=== PATIENT | female | born 1965 | race Caucasian/White ===

== ENCOUNTER 2018-07-18 08:38 | Day surgery (SDC) | payer BC, SELFPAY ==
[2018-07-18 08:59] VITALS: BP 140/85; PULSE 56; RESP 16; TEMP 36; O2SAT 97
[2018-07-18] MEDS: Lactated Ringers 1,000 ML 30 ML IV (09:31)
--- NOTE | 2018-07-18 10:22 | W.PM.DSUDISC ---
Discharge Plan Disposition Patient Disposition: HOME Condition: Good Discharge Details Reason For Visit: Colorectal Cancer screen Attending Provider: Harmeet Monique Primary Care Provider: Royce Farris Home Meds and New Rx's Prescriptions: Continue rizatriptan 10 mg tablet 10 mg PO PRN PRNRF: 0 venlafaxine 150 mg capsule,extended release 24hr 300 mg PO DAILY RF: 0 trazodone 150 mg tablet 150 mg PO HS RF: 0 promethazine 25 mg suppository 25 mg [place] Q6H PRNRF: 0 ondansetron HCl 4 mg tablet 4 mg PO QID PRNRF: 0 diclofenac sodium 75 mg tablet,delayed release (DR/EC) 75 mg PO BID RF: 0 candesartan 32 mg tablet 32 mg PO DAILY RF: 0 erenumab-aooe [Aimovig Autoinjector (2 Pack)] 70 mg/mL auto-injector 140 mg SC QMONTH RF: 0 multivitamin,et-zftl-tyntmbfr [Complete Multivitamin] tablet 1 tab PO DAILY RF: 0 gabapentin 600 mg tablet 1,200 mg PO BID RF: 0 atorvastatin 20 MG tablet 20 mg PO DAILY RF: 0 atenolol 50 MG tablet 75 mg PO DAILY RF: 0 vitamin B complex 1 EACH tablet 1 ea PO DAILY RF: 0 cholecalciferol (vitamin D3) [Vitamin D3] 400 UNIT tablet 400 unit PO DAILY RF: 0 hydroxychloroquine 200 MG tablet 200 mg PO BID RF: 0 levothyroxine 75 MCG tablet 75 mcg PO DAILY RF: 0 omeprazole 20 mg Tablet,Delayed Release (Dr/Ec) 20 mg PO DAILY RF: 0 coQ10 (ubiquinol) 100 mg Capsule 300 mg PO DAILY RF: 0 Estravel 1 tab PO BID RF: 0 Medical Marijuana DAILY RF: 0 Discharge Instructions Instructions: Colonoscopy (DC) Activity:: Activity as Tolerated Diet:: As Tolerated Discharge Orders Discharge Orders: Discharge Order (Routine); Ordered 07/18/18 Ordered By: Harmeet Monique DS: Diagnosis Discharge Diagnosis (1) Encounter for screening colonoscopy: Status: Acute
--- NOTE | 2018-07-18 10:30 | W.COLOREPORT ---
Date of service: 07/18/18 Time of Service: 10:30 Colonoscopy Report Date of procedure: 07/18/18 Pre-op diagnosis general: Colorectal cancer screening Post-op diagnosis procedure note: other (Normal colon to the cecum) Procedure: Colonoscopy to the cecum Surgeon: Harmeet Monique Anesthesia proc note operative: MAC (Wily Martinez, NORBERTO ASA 2, Mallampati II) Estimated blood loss (mL): 0 Pathology: none sent Complications: None Disposition: same day Indications: 52 y/o female with history presents for her first colonoscopy screening pre-op. She denies a family history of colon cancer. She denies any changes in bowel habits, however states that she has always had issues with diarrhea which she treats with immodium and constipation. Denies bloody or black tarry stools or abdominal pain. She denies constitutional symptoms. Prep: Miralax/Dulcolax (Prep quality good) Findings: In examining the colon from cecum to rectum, no abnormalities were found. Procedure Description: The patient was seen in the day surgery waiting area. Her identification was confirmed, and procedure check. She was then brought to the procedure room. Monitoring for telemetry, blood pressure, oxygen saturation, and end tidal CO2 monitoring were applied. An appropriate time out was performed to confirm, identification, allergies, medication, procedure, was performed. Sedation was titrated for affect by the SOCIOLOGY INSTRUCTOR; Once adequate sedation was achieved, I performed a inspection of the external perineum, and a digitial rectal examination. No significant external abnormalities were noted. On digital rectal examination, there was no blood, no masses, good rectal tone. I advanced the colonoscope from the anus to the cecum under direct visualization. The cecum was identified by the ileal-cecal valve, and the appendiceal orifice. The scope was then withdrawn in circumferential manner from the cecum to the rectum. No abnormalites were noted in the colon. The scope was then withdrawn into the rectum, and retroflexed. No abnormalities were noted of the rectum or anorectal junction. The scope was then withdrawn, terminating the procedure. There were no complications during the procedure, and the patient tolerated the procedure well. She was returned to the day surgery recovery area in good condition. Plan: Will continue with routine screening for colorectal cancer according to current consensus guidelines, which is currently 10 years.
[2018-07-18 12:07] VITALS: BP 106/56; PULSE 52; RESP 18; TEMP 36.7; O2SAT 96
== END 2018-07-18 12:55 | disposition home or self-care (01) ==
PROVIDERS: PCP Internal Medicine; Visit Provider Surgery
PROC: 0DJD8ZZ Inspection of Lower Intestinal Tract, Via Natural or Artificial Opening Endoscopic (ICD-10-PCS; CPT 45378; principal; 2018-07-18 10:30)
DX: Z12.11 Encounter for screening for malignant neoplasm of colon (principal); I10 Essential (primary) hypertension; G47.33 Obstructive sleep apnea (adult) (pediatric)
CPT/HCPCS: 45378; J2250; J3010

== ENCOUNTER 2019-03-24 11:46 | Outpatient (CLI) | payer BC, SELFPAY ==
[2019-03-24 13:26] LABS: Anion Gap 6.8 mmol/L (3-11); BUN 20 mg/dL (7-18); CO2 28.2 mmol/L (21.0-32.0); CREATININE 0.82 mg/dL (0.55-1.02); Calcium 9.1 mg/dL (8.5-10.1); Chloride 99 mmol/L (98-107); Glucose 77 mg/dL (70-100); Potassium 5.2 mmol/L (3.5-5.1); Sodium 134 mmol/L (136-145); TSH 1.28 uIU/mL (0.358-3.74)
== END 2019-03-24 12:06 ==
PROVIDERS: PCP Internal Medicine; Visit Provider Internal Medicine
DX: I10 Essential (primary) hypertension (principal); E03.9 Hypothyroidism, unspecified
CPT/HCPCS: 36415; 80048; 84443

== ENCOUNTER 2019-04-27 08:10 | Outpatient (CLI) | payer BC, SELFPAY ==
[2019-04-27 09:57] LABS: Anion Gap 9.1 mmol/L (3-11); BUN 17 mg/dL (7-18); CO2 27.9 mmol/L (21.0-32.0); CREATININE 0.83 mg/dL (0.55-1.02); Calcium 9.5 mg/dL (8.5-10.1); Chloride 100 mmol/L (98-107); Glucose 92 mg/dL (70-100); Potassium 5.2 mmol/L (3.5-5.1); Sodium 137 mmol/L (136-145); TSH 3.95 uIU/mL (0.358-3.74)
== END 2019-04-27 08:30 ==
PROVIDERS: PCP Internal Medicine; Visit Provider Internal Medicine
DX: I10 Essential (primary) hypertension (principal); E03.9 Hypothyroidism, unspecified
CPT/HCPCS: 36415; 80048; 84443

== ENCOUNTER 2019-05-26 07:29 | Emergency (ER) | payer BC, SELFPAY ==
[2019-05-26 07:33] VITALS: BP 101/37; PULSE 59; RESP 12; TEMP 36.5; O2SAT 100
[2019-05-26] MEDS: Amoxicillin 875/Clav. 125 TAB PO (08:02)
--- NOTE | 2019-05-26 08:02 | ED.GENADUL_ITS ---
Discharge Plan Disposition Patient Disposition: HOME Condition: Stable Discharge Details Chief Complaint: AnimalBite Clinical Impression: Dog bite of right arm Primary Care Provider: Pastora Kaur ED Provider: Yakov Gudino Philip Meds and New Rx's Prescriptions: New amoxicillin-pot clavulanate [Augmentin] 875-125 mg tablet 1 tab PO Q12H Qty: 14 RF: 0 No Action rizatriptan 10 mg tablet 10 mg PO PRN PRNRF: 0 venlafaxine 150 mg capsule,extended release 24hr 300 mg PO DAILY RF: 0 trazodone 150 mg tablet 150 mg PO HS RF: 0 promethazine 25 mg suppository 25 mg [place] Q6H PRNRF: 0 ondansetron HCl 4 mg tablet 4 mg PO QID PRNRF: 0 diclofenac sodium 75 mg tablet,delayed release (DR/EC) 75 mg PO BID RF: 0 candesartan 32 mg tablet 32 mg PO DAILY RF: 0 erenumab-aooe [Aimovig Autoinjector (2 Pack)] 70 mg/mL auto-injector 140 mg SC QMONTH RF: 0 multivitamin,km-mygq-booqntwa [Complete Multivitamin] tablet 1 tab PO DAILY RF: 0 gabapentin 600 mg tablet 1,200 mg PO BID RF: 0 atorvastatin 20 MG tablet 20 mg PO DAILY RF: 0 atenolol 50 MG tablet 75 mg PO DAILY RF: 0 vitamin B complex 1 EACH tablet 1 ea PO DAILY RF: 0 cholecalciferol (vitamin D3) [Vitamin D3] 400 UNIT tablet 400 unit PO DAILY RF: 0 hydroxychloroquine 200 MG tablet 200 mg PO BID RF: 0 levothyroxine 75 MCG tablet 75 mcg PO DAILY RF: 0 omeprazole 20 mg Tablet,Delayed Release (Dr/Ec) 20 mg PO DAILY RF: 0 coQ10 (ubiquinol) 100 mg Capsule 300 mg PO DAILY RF: 0 Estravel 1 tab PO BID RF: 0 Medical Marijuana DAILY RF: 0 Discharge Instructions Instructions: Animal Bite (ED) Additional Instructions: return in 7-10 days to have the woud evaluate for suture removal. If redness spreads away from the wound or you have yellow/white discharge return to the [facility] department Medical Decision Making 53 yo female states she was breaking up a dispute between her dogs this morning and her gonsalez retriever that is utd on vaccines per pt bit her right arm. She has 3 puncture wounds to the forearm that are less than 3mm in diameter. Has no severe pain in the forearm, full rom of the wrist and hand with intact sensation so doubt tendon or nerve or artery injury (2+ radial and ulnar pulses). She has a 1cm laceration of the anterior elbow in ac fossa that will require sutures to loosely close, she has full rom of the elbow but is having some lateral pain so will xray to eval for possible fx. She states she had tetanus vaccine a few weeks ago xray negative, closed the wound with 5 sutures, advised return in 7-10 days for suture removal and sooner if signs of infection develop Differential Diagnosis dog bite, fx Imaging Data Radiologic Study: Attestation: I personally reviewed and interpreted this imaging study as follows: Imaging: X-Ray Radiologist's impression: no acute findings HPI General Mode of arrival: ambulatory . Date/Time Provider Initiated Documentation: 05/26/19 07:49 . Limitations to Documentation: no limitations . Information obtained by: patient . History of Present Illness 53 year old F presents to the emergency department with the chief complaint of right arm dog bite, described as moderate, Quality is described as aching, and is localized to the right and upper extremity. Patient reports no radiation. Patient started experiencing this hour(s) (1) and it has been constant. No relieving factors improve symptom(s), No exacerbating factors reported . Patient did receive the following treatments prior to arrival, none Related Data Home Medications Medication Instructions Recorded Confirmed atenolol 75 mg PO DAILY tab-cap 03/08/15 07/16/18 atorvastatin 20 mg PO DAILY tab-cap 03/08/15 07/18/18 vitamin B complex 1 ea PO DAILY 03/08/15 07/18/18 cholecalciferol (vitamin D3) 400 unit PO DAILY 06/09/15 07/18/18 [Vitamin D3] levothyroxine 75 mcg PO DAILY 09/01/15 07/16/18 hydroxychloroquine 200 mg PO BID tab-cap NS 02/13/18 07/16/18 candesartan 32 mg tablet 32 mg PO DAILY 07/07/18 07/16/18 diclofenac sodium 75 mg 75 mg PO BID tab 07/07/18 07/18/18 tablet,delayed release erenumab-aooe 70 mg/mL 140 mg SC QMONTH 07/07/18 07/18/18 subcutaneous auto-injector gabapentin 600 mg tablet 1,200 mg PO BID tab 07/07/18 07/16/18 multivitamin,cr-yybb-nawdmzez 1 tab PO DAILY 07/07/18 07/18/18 ondansetron HCl 4 mg tablet 4 mg PO QID PRN 07/07/18 07/18/18 promethazine 25 mg rectal 25 mg MN Q6H PRN 07/07/18 07/18/18 suppository rizatriptan 10 mg tablet 10 mg PO PRN PRN 07/07/18 07/18/18 trazodone 150 mg tablet 150 mg PO HS 07/07/18 07/18/18 venlafaxine 150 mg 300 mg PO DAILY cap 07/07/18 07/16/18 capsule,extended release 24 hr Estravel 1 tab PO BID 07/16/18 Medical Marijuana DAILY 07/16/18 coQ10 (ubiquinol) 300 mg PO DAILY 07/16/18 07/18/18 omeprazole 20 mg PO DAILY 07/16/18 07/16/18 amoxicillin-pot clavulanate 1 tab PO Q12H #14 tab 05/26/19 [Augmentin] Previous Rx's Medication Instructions Recorded amoxicillin-pot clavulanate 1 tab PO Q12H #14 tab 05/26/19 [Augmentin] Allergies Allergy/AdvReac Type Severity Reaction Status Date / Time No Known Allergies Allergy Verified 05/26/19 07:37 General Stated Complaint: AnimalBite ALTHEA: 3 Review of Systems Review of Systems All systems reviewed & are unremarkable except as noted in HPI and below Constitutional Denies chills and Denies fever(s) Cardiovascular Denies chest pain and Denies dyspnea Respiratory Denies cough and Denies dyspnea Gastrointestinal Denies abdominal pain, Denies nausea and Denies vomiting Musculoskeletal Denies joint swelling [facility] Medical History (Updated 07/17/18 @ 09:56 by Wale Rivera) Depression Fibromyalgia GERD (gastroesophageal reflux disease) Hyperlipidemia Hypertension Hypothyroidism Insomnia Migraine OSCAR (obstructive sleep apnea) Surgical History (Updated 07/30/18 @ 14:33 by [facility] OR) Cholecystectomy Excision, Skin Mass H/O colonoscopy (Chronic 07/18/18) Laparoscopic, Ovarian Cystectomy Social History Smoking/Tobacco Use Status: Current every day Tobacco Type: cigarettes Alcohol Intake: current Alcohol Intake frequency: 0-2 drinks per day Alcohol type: wine Drug use: Daily Substance use type: marijuana Do you feel safe at home: Yes Do you feel safe in your relationship?: Yes Exam Const General: no acute distress Orientation: alert HENMT Head: normal to inspection Ears: external ears normal General nose exam: external nose normal Mouth: moist mucous membranes Eyes General: appearance normal, both eyes and all related structures Neck Neck: normal visual inspection Resp Effort & Inspection: normal respiratory effort and able to speak in complete sentences Cardio Rate: regular rate Skin General skin exam: no rashes or lesions noted Neuro General: alert and oriented x3 Extrem General: full ROM Psych Mental Status: mental status grossly normal Course Vital Signs Temperature 36.5 C 05/26/19 07:33 Pulse 59 L 05/26/19 07:33 Respiratory Rate 12 05/26/19 07:33 Blood Pressure 101/37 L 05/26/19 07:33 Pulse Oximetry 100 05/26/19 07:33 Temperature 36.5 C 05/26/19 07:33 Temperature Source Temporal Artery Scan 05/26/19 07:33 Pulse 59 L 05/26/19 07:33 Respiratory Rate 12 05/26/19 07:33 Respiratory Effort Non-Labored 05/26/19 07:35 Blood Pressure 101/37 L 05/26/19 07:33 Blood Pressure Position Sitting 05/26/19 07:33 Pulse Oximetry 100 05/26/19 07:33 Oxygen Delivery Method Room Air 05/26/19 07:33 Oxygen Flow Rate 0 05/26/19 07:33 Pain Level 7 05/26/19 07:33 Procedures Laceration Laceration 1: Site: upper extremity Side (If applicable): right Size (cm): 2 Description: linear Depth: simple, single layer Local Anesthetic: Lidocaine 1% Amount of anesthesia used (mL): 10 Pre-repair: wound explored Skin layer closed with: nylon Size (cm): 5-0 Number of sutures: 5 Technique: simple, interrupted
--- NOTE | 2019-05-26 08:08 | DI.RAD_ITS ---
SYMPTOM/DIAGNOSIS: PAIN, S/P DOG BITE, ? FRACTURE RIGHT ELBOW: 05/26 Three views were obtained. There is no evidence of an elbow joint effusion or hemarthrosis. No fracture is seen.
[2019-05-26 09:09] VITALS: BP 101/37; PULSE 59; RESP 12; TEMP 36.5; O2SAT 100
== END 2019-05-26 09:07 | disposition home or self-care (01) ==
PROVIDERS: Emergency Provider Emergency Medicine; PCP Internal Medicine
DX: S51.851A Open bite of right forearm, initial encounter (principal); S51.051A Open bite, right elbow, initial encounter; W54.0XXA Bitten by dog, initial encounter; I10 Essential (primary) hypertension
CPT/HCPCS: 12001; 99283; 73080; 99281

== ENCOUNTER 2019-06-01 11:08 | Outpatient (CLI) | payer BC, SELFPAY ==
[2019-06-01 12:07] LABS: Anion Gap 9.5 mmol/L (3-11); BUN 14 mg/dL (7-18); CO2 28.5 mmol/L (21.0-32.0); CREATININE 0.88 mg/dL (0.55-1.02); Calcium 9.3 mg/dL (8.5-10.1); Chloride 100 mmol/L (98-107); Glucose 94 mg/dL (70-100); Potassium 4.1 mmol/L (3.5-5.1); Sodium 138 mmol/L (136-145)
== END 2019-06-01 11:28 ==
PROVIDERS: PCP Internal Medicine; Visit Provider Internal Medicine
DX: I10 Essential (primary) hypertension (principal)
CPT/HCPCS: 36415; 80048

== ENCOUNTER 2019-07-29 12:18 | Outpatient (CLI) | payer BC, SELFPAY | END 2019-07-29 12:38 | PROVIDERS: PCP Internal Medicine; Visit Provider Internal Medicine | DX: E03.9 Hypothyroidism, unspecified (principal) | CPT/HCPCS: 36415; 84443 ==

== ENCOUNTER 2020-04-11 20:59 | Outpatient (REF) | payer BC, SELFPAY ==
[2020-04-11 22:32] LABS: BUN 22 mg/dL (7-18); CREATININE 1.11 mg/dL (0.55-1.02); Calcium 9.3 mg/dL (8.5-10.1); Chloride 94 mmol/L (98-107); Estimated GFR 51.42 (mL/min/1.73m2); Glucose 89 mg/dL (74-106); Potassium 4.3 mmol/L (3.5-5.1); Sodium 130 mmol/L (136-145); TSH 0.96 uIU/mL (0.36-3.74)
== END 2020-04-11 21:19 ==
LOC: LBN 20:59
PROVIDERS: PCP Internal Medicine; Visit Provider Internal Medicine
DX: E03.9 Hypothyroidism, unspecified (principal); Z78.0 Asymptomatic menopausal state
CPT/HCPCS: 80048; 84443

== ENCOUNTER 2020-04-28 13:57 | Outpatient (REF) | payer BC, SELFPAY ==
[2020-04-28 20:39] LABS: Anion Gap 10.5 mmol/L (3-11); BUN 25 mg/dL (7-18); CO2 26.5 mmol/L (21.0-32.0); CREATININE 1.27 mg/dL (0.55-1.02); Calcium 9.7 mg/dL (8.5-10.1); Chloride 90 mmol/L (98-107); Estimated GFR 44.02 (mL/min/1.73m2); Glucose 103 mg/dL (74-106); Potassium 3.9 mmol/L (3.5-5.1); Sodium 127 mmol/L (136-145)
== END 2020-04-28 14:17 ==
LOC: NCHCN 13:57
PROVIDERS: PCP Internal Medicine; Visit Provider Internal Medicine
DX: I10 Essential (primary) hypertension (principal)
CPT/HCPCS: 80048

== ENCOUNTER 2020-05-17 11:19 | Outpatient (REF) | payer BC, SELFPAY ==
[2020-05-17 20:58] LABS: Anion Gap 8.5 mmol/L (3-11); BUN 13 mg/dL (7-18); CO2 28.5 mmol/L (21.0-32.0); CREATININE 0.98 mg/dL (0.55-1.02); Calcium 9.4 mg/dL (8.5-10.1); Chloride 97 mmol/L (98-107); Estimated GFR 59.37 (mL/min/1.73m2); Glucose 96 mg/dL (74-106); Potassium 4.4 mmol/L (3.5-5.1); Sodium 134 mmol/L (136-145)
== END 2020-05-17 11:39 ==
LOC: NCHCN 11:19
PROVIDERS: PCP Internal Medicine; Visit Provider Nurse Practitioner Family
DX: I10 Essential (primary) hypertension (principal)
CPT/HCPCS: 80048

== ENCOUNTER 2020-08-22 13:25 | Outpatient (REF) | payer BC, SELFPAY ==
[2020-08-22 20:58] LABS: Anion Gap 7.7 mmol/L (3-11); BUN 16 mg/dL (7-18); CO2 28.3 mmol/L (21.0-32.0); CREATININE 0.86 mg/dL (0.55-1.02); Chloride 102 mmol/L (98-107); Glucose 99 mg/dL (74-106); Potassium 4.7 mmol/L (3.5-5.1); Sodium 138 mmol/L (136-145)
== END 2020-08-22 13:45 ==
LOC: NCHCN 13:25
PROVIDERS: PCP Internal Medicine; Visit Provider Internal Medicine
DX: I10 Essential (primary) hypertension (principal)
CPT/HCPCS: 80048

== ENCOUNTER 2021-01-01 06:36 | Emergency (ER) | payer BC, SELFPAY ==
--- NOTE | 2021-01-01 06:39 | ED.GENADUL_ITS ---
Discharge Plan Disposition Patient Disposition: HOME Condition: Good Discharge Details Clinical Impression: Headache Primary Care Provider: Pastora Kaur ED Provider: Hilton Espinoza Tomales Meds and New Rx's Prescriptions: Continued rizatriptan 10 mg tablet 10 mg PO PRN PRNRF: 0 trazodone 150 mg tablet 150 mg PO HS RF: 0 promethazine 25 mg suppository 25 mg [place] Q6H PRNRF: 0 ondansetron HCl 4 mg tablet 4 mg PO QID PRNRF: 0 diclofenac sodium 75 mg tablet,delayed release (DR/EC) 75 mg PO BID RF: 0 candesartan 32 mg tablet 32 mg PO DAILY RF: 0 Aimovig Autoinjector (2 Pack) 70 mg/mL auto-injector 140 mg SC QMONTH RF: 0 Complete Multivitamin tablet 1 tab PO DAILY RF: 0 gabapentin 600 mg tablet 1,200 mg PO BID RF: 0 atorvastatin 20 MG tablet 20 mg PO DAILY RF: 0 atenolol 50 MG tablet 75 mg PO DAILY RF: 0 vitamin B complex 1 EACH tablet 1 ea PO DAILY RF: 0 cholecalciferol (vitamin D3) [Vitamin D3] 400 UNIT tablet 400 unit PO DAILY RF: 0 hydroxychloroquine 200 MG tablet 200 mg PO BID RF: 0 levothyroxine 75 MCG tablet 75 mcg PO DAILY RF: 0 omeprazole 20 mg Tablet,Delayed Release (Dr/Ec) 20 mg PO DAILY RF: 0 coQ10 (ubiquinol) 100 mg Capsule 300 mg PO DAILY RF: 0 Estravel 1 tab PO BID RF: 0 Medical Marijuana DAILY RF: 0 Discharge Instructions Additional Instructions: Home and rest today. Follow-up with primary care this week if continued problems. Return to ED if sudden severe worsening of headache, neurologic changes, other concerns. Referrals: Pastora Kaur [Primary Care Provider] - Medical Decision Making Patient with headache that seemed to start out like typical migraines but has not responded to medications. Has now had headache for almost 5 days. She has photophobia, nausea and vomiting but no neurologic changes. Blood pressure here is fine. Will go ahead and treat with IV fluids, ketorolac, prochlorperazine and reevaluate. Headache has resolved after medications and fluids. Patient be discharged home to take it easy for the rest of today. Follow-up with primary care this week if continued problems. Return to ED if sudden worsening of headache, neurologic changes, mental status changes, other concerns. HPI General Mode of arrival: ambulatory . Date/Time Provider Initiated Documentation: 01/01/21 06:39 . Limitations to Documentation: no limitations . Information obtained by: patient, RN notes reviewed and old records reviewed . HPI Narrative: Patient presents to ED with throbbing headache to the top of her head. Seemingly started like a migraine but will not go away despite her taking her medications. Yesterday she had associated vomiting. She does have photophobia. She no longer has the posterior head pain that she typically has with migraines. All seems to be the top of her head at this point. She has not experienced any neurologic changes. She denies visual change, gait disturbance, numbness, weakness. She was concerned it was related to blood pressure when she found her blood pressure to be over 200 this morning. She denies chest pain, shortness of breath. She has tried Tylenol and rizatriptan without relief. Related Data Home Medications Medication Instructions Recorded Confirmed atenolol 75 mg PO DAILY tab-cap 03/08/15 01/01/21 atorvastatin 20 mg PO DAILY tab-cap 03/08/15 01/01/21 vitamin B complex 1 ea PO DAILY 03/08/15 01/01/21 cholecalciferol (vitamin D3) 400 unit PO DAILY 06/09/15 01/01/21 [Vitamin D3] levothyroxine 75 mcg PO DAILY 09/01/15 01/01/21 hydroxychloroquine 200 mg PO BID tab-cap NS 02/13/18 01/01/21 candesartan 32 mg tablet 32 mg PO DAILY 07/07/18 01/01/21 diclofenac sodium 75 mg 75 mg PO BID tab 07/07/18 01/01/21 tablet,delayed release erenumab-aooe 70 mg/mL 140 mg SC QMONTH 07/07/18 01/01/21 subcutaneous auto-injector gabapentin 600 mg tablet 1,200 mg PO BID tab 07/07/18 01/01/21 multivitamin,nu-urgj-arefgtrp 1 tab PO DAILY 07/07/18 01/01/21 ondansetron HCl 4 mg tablet 4 mg PO QID PRN 07/07/18 01/01/21 promethazine 25 mg rectal 25 mg [place] Q6H PRN 07/07/18 01/01/21 suppository rizatriptan 10 mg tablet 10 mg PO PRN PRN 07/07/18 01/01/21 trazodone 150 mg tablet 150 mg PO HS 07/07/18 01/01/21 Estravel 1 tab PO BID 07/16/18 Medical Marijuana DAILY 07/16/18 coQ10 (ubiquinol) 300 mg PO DAILY 07/16/18 01/01/21 omeprazole 20 mg PO DAILY 07/16/18 01/01/21 Allergies Allergy/AdvReac Type Severity Reaction Status Date / Time No Known Allergies Allergy Verified 01/01/21 06:44 General ALTHEA: 3 Review of Systems Narrative: As documented in HPI otherwise negative as below. Const: no fever, chills, weakness Resp: no cough, SOB, pleuritic pain CV: no CP, diaphoresis, edema, syncope GI: no abdominal pain, diarrhea Neuro: no numbness, focal weakness, confusion PFSH Medical History Depression Fibromyalgia GERD (gastroesophageal reflux disease) Hyperlipidemia Hypertension Hypothyroidism Insomnia Migraine OSCAR (obstructive sleep apnea) Surgical History Cholecystectomy Excision, Skin Mass sebaceous cyst right posterior shoulder H/O colonoscopy (07/18/18) repeat in ten years Laparoscopic, Ovarian Cystectomy Social History Smoking/Tobacco Use Status: Current every day Tobacco Type: cigarettes Smoking risk assessment performed?: Yes Alcohol Intake: current Alcohol Intake frequency: 0-2 drinks per day Alcohol type: wine Drug use: Daily Substance use type: marijuana Do you feel safe at home: Yes Do you feel safe in your relationship?: Yes Exam Narrative Exam Narrative: Const: WDWN female in NAD. HEENT: NC/AT. Normal facial exam. Eyes: PERRL and EOMI Neck: Supple. Trachea midline. Lungs: Normal respiratory effort. Cor: RRR. Good radial pulses. Neuro: A+O x 3. Normal speech, mentation, gait. Cranial nerves II - XII grossly intact. No gross motor or sensory deficit. FTN normal Ext: No C/C/E. Skin: Warm and dry without rash.
[2021-01-01 06:40] VITALS: BP 124/51; PULSE 72; RESP 16; TEMP 36.4; O2SAT 98
[2021-01-01] MEDS: Lactated Ringers 1,000 ML 1000 ML IV (07:10)
[2021-01-01] MEDS: Normal Saline Flush 10 ML SYR IVP (07:10)
[2021-01-01] MEDS: Ketorolac 15 MG/ML VIAL IVP (07:15)
[2021-01-01] MEDS: Prochlorperazine 10 MG/2 ML VIAL IVP (07:22)
[2021-01-01 07:59] VITALS: BP 105/59; PULSE 67; RESP 16; TEMP 36.4; O2SAT 97
== END 2021-01-01 07:59 | disposition home or self-care (01) ==
PROVIDERS: Emergency Provider Emergency Medicine; PCP Internal Medicine
DX: R51.9 Headache, unspecified (principal)
CPT/HCPCS: 96361; 96365; 96375; 99284; 99283; J0780; J1885

== ENCOUNTER 2021-02-22 08:13 | Outpatient (REF) | payer BC, SELFPAY ==
[2021-02-22 14:04] LABS: ALT 41 U/L (14-59); AST 23 U/L (15-37); Albumin 3.5 g/dL (3.4-5.0); Alkaline Phosphatase 75 U/L (46-116); BUN 10 mg/dL (7-18); Bilirubin, Total 0.4 mg/dL (0.2-1.0); CREATININE 0.8 mg/dL (0.55-1.02); Calcium 9.5 mg/dL (8.5-10.1); Calculated LDL 72 mg/dL (<100); Chloride 101 mmol/L (98-107); Cholesterol 151 mg/dL (<200); Glucose 105 mg/dL (74-106); HDL Cholesterol 57 mg/dL (40-60); Potassium 4.2 mmol/L (3.5-5.1); Sodium 138 mmol/L (136-145); TSH 0.82 uIU/mL (0.36-3.74); Total Protein 6.8 g/dL (6.4-8.2); Triglyceride 113 mg/dL (<150)
== END 2021-02-22 08:14 | disposition home or self-care (01) ==
LOC: NCHCN 08:13
PROVIDERS: PCP Internal Medicine; Visit Provider Internal Medicine
DX: I10 Essential (primary) hypertension (principal); R78.5 Finding of other psychotropic drug in blood; E03.9 Hypothyroidism, unspecified
CPT/HCPCS: 80053; 80061; 84443

== ENCOUNTER 2021-08-01 16:53 | Outpatient (REF) | payer BC, SELFPAY | END 2021-08-01 16:54 | disposition home or self-care (01) | LOC: NCHCN 16:53 | PROVIDERS: PCP Internal Medicine; Visit Provider Nurse Practitioner Family | DX: R30.0 Dysuria (principal) | CPT/HCPCS: 87077; 87086; 87186 ==

== ENCOUNTER 2021-09-16 11:50 | Emergency (ER) | payer BC, SELFPAY ==
[2021-09-16 11:57] VITALS: BP 139/56; PULSE 60; RESP 16; TEMP 36.7; O2SAT 100
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
[2021-09-16] MEDS: Cyclobenzaprine 10 MG TAB PO (12:28)
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
[2021-09-16 13:30] VITALS: BP 134/67; PULSE 54; RESP 14; TEMP 36.6; O2SAT 100
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
[2021-09-16 13:58] VITALS: BP 134/67; PULSE 54; RESP 14; TEMP 36.6; O2SAT 100
== END 2021-09-16 13:51 | disposition home or self-care (01) ==
PROVIDERS: Emergency Provider Physician Assistant; PCP Internal Medicine
DX: S13.4XXA Sprain of ligaments of cervical spine, initial encounter (principal); M54.50 Low back pain, unspecified; M62.830 Muscle spasm of back; V43.52XA Car driver injured in collision with other type car in traffic accident, initial encounter; R51.9 Headache, unspecified; M47.812 Spondylosis without myelopathy or radiculopathy, cervical region
CPT/HCPCS: 99284; 70450; 72125; 72128; 72131

== ENCOUNTER 2022-01-09 02:51 | Outpatient (CLI) | payer BC, SELFPAY ==
[2022-01-09 13:07] LABS: Abs Immature Grans 0.03 10^3/uL (0.0-0.06); Absolute Basophil Count 0.06 10^3/uL (0.0-0.2); Absolute Lymphocyte Count 1.87 10^3/uL (1.2-3.4); Absolute Neutrophil Count 7.96 10^3/uL (1.2-6.7); Basophils % 0.6; Eosinophils % 0.9; HGB 14.1 g/dL (11.2-15.7); Immature Grans % 0.3; Lymphocytes % 17.6; MCHC 33.6 % (32.0-36.0); MCV 92.3 fL (80-95); MPV 9.2 fL (8.0-11.0); Monocytes % 5.6; Nucleated RBC 0 %; Platelet Count 301 10^3/uL (130-400); RBC 4.55 10^6/uL (3.93-5.22); RDW 11.9 % (11.7-14.6); RDW-SD 41.1 fL; WBC 10.62 10^3/uL (4.4-10.8)
[2022-01-09 14:10] LABS: ALT 50 U/L (14-59); AST 24 U/L (15-37); Albumin 3.7 g/dL (3.4-5.0); Alkaline Phosphatase 71 U/L (46-116); Anion Gap 7.4 mmol/L (3-11); BUN 10 mg/dL (7-18); Bilirubin, Total 0.5 mg/dL (0.2-1.0); C-Reactive Protein 0.15 mg/dL (0.0-0.3); CO2 29.6 mmol/L (21.0-32.0); CREATININE 0.7 mg/dL (0.55-1.02); Calcium 9.2 mg/dL (8.5-10.1); Calculated LDL 75 mg/dL (<100); Chloride 99 mmol/L (98-107); Cholesterol 156 mg/dL (<200); Glucose 91 mg/dL (74-106); HDL Cholesterol 65 mg/dL (40-60); Potassium 4.6 mmol/L (3.5-5.1); Sodium 136 mmol/L (136-145); Total Protein 6.9 g/dL (6.4-8.2); Triglyceride 83 mg/dL (<150)
[2022-01-09 14:27] LABS: FREE T4 1.31 ng/dL (0.76-1.46)
== END 2022-01-09 02:52 | disposition home or self-care (01) ==
LOC: LBO 02:51
PROVIDERS: PCP Internal Medicine; Visit Provider Nurse Practitioner Psychiatric/Mental Health
DX: F06.31 Mood disorder due to known physiological condition with depressive features (principal); F17.200 Nicotine dependence, unspecified, uncomplicated; F43.23 Adjustment disorder with mixed anxiety and depressed mood; I10 Essential (primary) hypertension; E78.5 Hyperlipidemia, unspecified
CPT/HCPCS: 36415; 80053; 80061; 84439; 84443; 85025; 86140

== ENCOUNTER 2022-02-26 18:28 | Outpatient (REF) | payer BC, SELFPAY ==
[2022-02-26 17:21] LABS: TSH 0.49 uIU/mL (0.36-3.74)
== END 2022-02-26 18:29 | disposition home or self-care (01) ==
LOC: NCHCN 18:28
PROVIDERS: PCP Internal Medicine; Visit Provider Internal Medicine
DX: Z00.00 Encounter for general adult medical examination without abnormal findings (principal); E03.9 Hypothyroidism, unspecified
CPT/HCPCS: 84443

== ENCOUNTER 2022-07-02 14:46 | Outpatient (REF) | payer BC, SELFPAY ==
[2022-07-02 20:54] LABS: Abs Immature Grans 0.02 10^3/uL (0.0-0.06); Absolute Basophil Count 0.05 10^3/uL (0.0-0.2); Absolute Eosinophil Count 0.12 10^3/uL (0.0-0.7); Absolute Lymphocyte Count 2.16 10^3/uL (1.2-3.4); Absolute Monocyte Count 0.78 10^3/uL (0.1-0.8); Absolute Neutrophil Count 3.71 10^3/uL (1.2-6.7); Basophils % 0.7; Eosinophils % 1.8; HCT 37.3 % (36.0-46.0); HGB 13.1 g/dL (11.2-15.7); Immature Grans % 0.3; Lymphocytes % 31.6; MCH 31.6 pg (27.0-33.0); MCHC 35.1 % (32.0-36.0); MCV 90 fL (80-95); MPV 9.7 fL (8.0-11.0); Monocytes % 11.4; Neutrophils % 54.2; Platelet Count 310 10^3/uL (130-400); RBC 4.14 10^6/uL (3.93-5.22); RDW 11.8 % (11.7-14.6); RDW-SD 38.5 fL; WBC 6.84 10^3/uL (4.4-10.8)
[2022-07-02 21:26] LABS: ALT 46 U/L (14-59); AST 28 U/L (15-37); Albumin 3.5 g/dL (3.4-5.0); Alkaline Phosphatase 62 U/L (46-116); Anion Gap 7.6 mmol/L (3-11); BUN 12 mg/dL (7-18); Bilirubin, Total 0.4 mg/dL (0.2-1.0); CO2 27.4 mmol/L (21.0-32.0); CREATININE 0.7 mg/dL (0.55-1.02); Calcium 9.1 mg/dL (8.5-10.1); Chloride 101 mmol/L (98-107); Estimated GFR 102.07 (mL/min/1.73m2); Ferritin 156 ng/mL (8-252); Glucose 89 mg/dL (74-106); Potassium 4.3 mmol/L (3.5-5.1); Sodium 136 mmol/L (136-145); TSH 0.54 uIU/mL (0.36-3.74)
[2022-07-02 21:29] LABS: Vitamin B12 > 2000 pg/mL (193-986)
== END 2022-07-02 14:47 | disposition home or self-care (01) ==
LOC: NCHCN 14:46
PROVIDERS: PCP Internal Medicine; Visit Provider Internal Medicine
DX: R53.83 Other fatigue (principal); E53.8 Deficiency of other specified B group vitamins; R94.5 Abnormal results of liver function studies; R73.03 Prediabetes
CPT/HCPCS: 80053; 82607; 82728; 84443; 85025

== ENCOUNTER 2022-08-16 10:51 | Day surgery (SDC) | payer BC, SELFPAY ==
--- NOTE | 2022-08-15 20:55 | W.PM.DSUDISC ---
Date of service: 08/16/22 Time of Service: 12:20 Discharge Plan Disposition Patient Disposition: HOME Condition: Good Discharge Details Reason For Visit: EGD Attending Provider: Jose Leggett Primary Care Provider: Pastora Kaur Home Meds and New Rx's Prescriptions: Continued rizatriptan 10 mg tablet 10 mg PO PRN PRN trazodone 150 mg tablet 150 mg PO HS ondansetron HCl 4 mg tablet 4 mg PO QID PRN candesartan 32 mg tablet 32 mg PO DAILY Aimovig Autoinjector (2 Pack) 70 mg/mL auto-injector 140 mg SC QMONTH Complete Multivitamin tablet 1 tab PO DAILY gabapentin 600 mg tablet 1,200 mg PO BID diclofenac sodium 1 % gel 2 g topical QID Rx Instructions: apply to single elbow, wrist or hand; for hand includes palm/fingers/back of hand cholecalciferol (vitamin D3) 25 mcg (1,000 unit) capsule 25 mcg PO DAILY estradiol 0.5 mg tablet 0.5 mg PO DAILY Rx Instructions: off 5 days; repeat cycle progesterone micronized 100 mg capsule 100 mg PO QAM Rx Instructions: off 7 days; repeat cycle atorvastatin 20 MG tablet 20 mg PO DAILY atenolol 50 MG tablet 50 mg PO DAILY vitamin B complex 1 EACH tablet 1 ea PO DAILY hydroxychloroquine 200 MG tablet 200 mg PO BID cyclosporine [Restasis] 0.05 % dropperette 1 drp ophthalmic (eye) Q12H duloxetine [Cymbalta] 60 mg capsule,delayed release(DR/EC) 60 mg PO BID cyanocobalamin (vitamin B-12) 1,000 mcg capsule 1,000 mcg PO DAILY levomefolate calcium [Elfolate] 7.5 mg tablet 7.5 mg PO DAILY triamcinolone acetonide 0.1 % cream 1 applic topical DAILY Ubrelvy 100 mg tablet 100 mg PO ONCE Rx Instructions: as a single dose; may repeat once in >=2 hours after first dose if needed naltrexone 50 mg tablet 4.5 mg PO DAILY cevimeline 30 mg capsule 30 mg PO DAILY levothyroxine 88 mcg tablet 88 mcg PO DAILY AM Label Comments: TAKE ONE TABLET BY MOUTH EVERY DAY clonidine HCl 0.1 mg tablet 0.1 mg PO BID Label Comments: TAKE ONE AND ONE HALF TABLETS BY MOUTH EVERY DAY Rx Instructions: 1/2 tab in the AM and 1 at hs omeprazole 20 mg Tablet,Delayed Release (Dr/Ec) 40 mg PO DAILY coQ10 (ubiquinol) 100 mg Capsule 300 mg PO DAILY Medical Marijuana DAILY No Action estradiol [Sydni] 0.025 mg/24 hr patch semiweekly 1 patch transdermal QWEEK Label Comments: APPLY 1 PATCH TO THE SKIN TWICE A WEEK Rx Instructions: 2xweek Discharge Instructions Instructions: Gastric Polyps (GEN), Duodenitis (GEN) Additional Instructions: 1. If tolerated, consume a soft, low fiber diet for 1-2 days. [address] not drive, drink alcohol, operate machinery, make critical decisions, or do activities that require coordination or balance for 24 hours. 3. You may experience a sore throat for 24 to 48 hours. You may use throat lozenges or gargle with warm salt water to relieve the discomfort. 4. Because air was put into your stomach during the procedure, you may experience some belching. 5. Go directly to the emergency room if you notice any of the following: Develop chills (warm to touch), or if you have a thermometer and your temperature is above 101 Difficulty breathing or difficultly swallowing Persistent vomiting Severe abdominal pain, other than gas cramps Severe chest pain Black, tarry stools Any bleeding ? exceeding one tablespoon 6. Call your physician if the site where your intravenous was started becomes red, swollen, painful, and warm to touch. 7. Your physician has reviewed your pre-procedure medications. Please continue to take those medications as previously ordered. You will be given specific information/education regarding any changes to your medications before leaving. Activity:: Activity as Tolerated Diet:: As Tolerated Discharge Orders Discharge Orders: Discharge Order (Routine); Ordered 08/15/22 Ordered By: Jose Leggett DS: Diagnosis Discharge Diagnosis (1) Gastric polyp: Status: Acute Asessment and Plan: I will contact you with results of the biopsies.
--- NOTE | 2022-08-15 20:57 | W.PM.ENDDOP ---
Date of service: 08/16/22 Time of Service: 12:16 Endoscopy Report DATE OF PROCEDURE: 08/16/22 PRE-OP DIAGNOSIS: Gastritis POST-OP DIAGNOSIS: other (Duodenitis) PROCEDURE: Diagnostic esophagogastroduodenoscopy SURGEON: Jose Leggett ANESTHESIA TYPE: General:No Airway ESTIMATED BLOOD LOSS: 30 PATHOLOGY: other (Duodenal biopsy x3, gastric antrum biopsy x3, gastric body biopsy x3, gastric polyp) COMPLICATIONS: None DISPOSITION: same day INDICATIONS: Paula is a 56-year-old woman with longstanding gastroesophageal reflux disease, and recent evolution of midepigastric pain with meals PROCEDURE START TIME: 12:02 PROCEDURE END TIME: 12:06 FINDINGS: Mild duodenitis and gastric polyp PROCEDURE DESCRIPTION: After the initiation of monitored anesthetic care, and with the assistance of a bite block, I advanced a standard gastroscope through the mouth past the hypopharynx and into the esophagus.? Under the direct vision of the scope, I advanced down the esophagus into the stomach.? Once I entered the stomach, I performed a brief inspection, followed by retroflexion towards the gastric cardia.? This appeared normal.? After that, I gently advanced the scope around the incisura angularis and examined the pylorus.? This also appeared normal.? Next, I advanced the scope through the pylorus into the duodenum.? There was some mild thickening of the pylorus, but nothing appeared pathologic. The duodenal mucosa was pink with a few small areas of inflammation.? There were no abnormalities.? I was able to visualize bile draining into the duodenum through the ampulla Vater. I performed random biopsies of the duodenum next, I began retracting the endoscope.? I returned to the stomach which was carefully examined once again.? I performed random biopsies of the gastric antrum. Retroflexion was normal. There was a singular gastric polyp in the body of the stomach. I performed a polypectomy with cold forceps. I also performed random biopsies of the gastric body. I then gently desufflated some of the stomach, and withdrew the endoscope into the distal esophagus. The GE junction was normal-appearing. The Z-line was normal at 36 cm. ?Finally, I withdrew the scope along the length of the esophagus taking great care to examine the entirety of the mucosa.? I did not appreciate any abnormalities.
[2022-08-16 11:28] VITALS: BP 141/65; PULSE 63; RESP 18; TEMP 36.2; O2SAT 98
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
[2022-08-16] MEDS: Lactated Ringers 1,000 ML 80 ML IV (11:39)
[2022-08-16 11:49] VITALS: BMI 25.6
--- NOTE | 2022-08-16 11:59 | STOM_PTH ---
PATIENT: Paula Hoffman LOC: [facility] U#:[id number] AGE/SX: 56/F ROOM: RE08/16/[address]: Jose Leggett MD : [id number] BED: DIS: 08/16/2022 SPEC #: [id number] RECD: 08/16/22 13:04 STATUS: [facility] #: [id number] DEBORAH: 08/16/22 11:[address]: Jose Leggett DEPT: Surgical Specimen RECD BY: Catie Tran ENTERED: 08/16/22 13:05 SP TYPE: STOMACH OTHR DR: Pastora Kaur Tissues: 1 - BIOPSY BOWEL 2 - STOMACH BIOPSY 3 - STOMACH BIOPSY 4 - STOMACH BIOPSY Procedures: GROSS AND MICRO LEVEL 4 Comments: [id number]
[2022-08-16 12:08] VITALS: BP 95/74; PULSE 60; RESP 16; TEMP 36.3; O2SAT 96
[2022-08-16 12:38] VITALS: BP 113/60; PULSE 58; RESP 18; TEMP 36.3; O2SAT 98
--- NOTE | 2022-08-16 12:41 | W.ANESPOSTOP ---
Postoperative Evaluation Date, Time and Location Date Performed: 08/16/22 Time Performed: 12:41 Patient Location: Day Surgery Unit Vital Signs Most Recent Imported Vital Signs: Most Recent Vital Signs Temp Pulse Resp BP Pulse Ox 36.3 C L 60 16 95/74 L 96 08/16/22 12:08 08/16/22 12:08 08/16/22 12:08 08/16/22 12:08 08/16/22 12:08 Pain Score Most Recent Pain Score: Most Recent Pain Score Pain Level 0 08/16/22 12:08 Assessment Mental Status: Awake (Alert & Oriented to Patient Baseline) Airway and Respiratory Function: Patent airway with normal (patient baseline) respiratory exam Cardiovascular Function: Hemodynamically Stable Hydration Status: Adequately Hydrated Nausea & Vomiting: No Nausea or Vomiting Pain: Pt. Denies Any Pain Peripheral Nerve Block: Patient did not receive a nerve block
== END 2022-08-16 13:05 | disposition home or self-care (01) ==
PROVIDERS: PCP Internal Medicine; Visit Provider Surgery
PROC: 0DJ68ZZ Inspection of Stomach, Via Natural or Artificial Opening Endoscopic (ICD-10-PCS; CPT 43235; principal; 2022-08-16 11:45)
DX: K29.70 Gastritis, unspecified, without bleeding (principal); K29.80 Duodenitis without bleeding; K31.7 Polyp of stomach and duodenum; K21.9 Gastro-esophageal reflux disease without esophagitis; K31.89 Other diseases of stomach and duodenum; K22.89 Other specified disease of esophagus
CPT/HCPCS: 43239; 88305; J2405

== ENCOUNTER 2022-09-18 17:56 | Outpatient (REF) | payer BC, SELFPAY | END 2022-09-18 17:57 | disposition home or self-care (01) | LOC: LBN 17:56 | PROVIDERS: PCP Internal Medicine; Visit Provider Family Medicine | DX: R35.0 Frequency of micturition (principal) | CPT/HCPCS: 87077; 87086; 87186 ==

== ENCOUNTER 2022-09-21 10:45 | Emergency (ER) | payer BC, SELFPAY ==
[2022-09-21 11:13] VITALS: BP 151/76; PULSE 70; RESP 18; TEMP 36.9; O2SAT 100
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
--- NOTE | 2022-09-21 11:33 | DI.CT_ITS ---
Exam(s) CT RENAL COLIC WO EXAM: CT RENAL COLIC WO CLINICAL HISTORY: flank pain. TECHNIQUE: Imaging Protocol: Axial computed tomography images with coronal and sagittal reformatted images were created and reviewed. COMPARISON: No exams were available for comparison FINDINGS: ABDOMEN: Lung Bases: Normal where visualized. Liver: Normal density. No measurable mass. Gallbladder and biliary tract: Status post cholecystectomy. No biliary ductal dilatation. Pancreas: Normal density, no abnormal calcifications or inflammatory process. Spleen: Normal. Kidneys: Normal size, contour and axis.There is a duplicated left renal collecting system. There is a 2 mm calcification in the left pelvis (series 3, image 648) that appears to lie in a distal left ur eter. No significant hydronephrosis is seen. It is difficult to tell which ureter the calcification would lie in at this time. No masses seen. Adrenal glands: No mass is seen. Lymph nodes: Within normal limits. Abdominal Aorta: Abdominal portion non-dilated. Atherosclerosis is present. PELVIS: Bladder:There is diffuse thickening of the wall of the urinary bladder. The urinary bladder is incom pletely distended. Bowel: No obstruction or bowel wall thickening. Appendix is unremarkable. Peritoneal cavity: No ascites, collection or mesenteric inflammatory response. No free air. Reproductive organs: Unremarkable as visualized. Bones: Within normal limits. Soft Tissues: Within normal limits. IMPRESSION: 1. There is a 2 mm calcification in the left pelvis at appears to lie in the distal left ureter. No hydronephrosis is seen. 2. There is no evidence of right nephrolithiasis or hydronephrosis. 3. Duplicated left renal collecting system. 4. Diffuse urinary bladder wall thickening without associated inflammatory changes. This may reflect an incompletely distended bladder. Cystitis cannot be entirely excluded. Please correlate clinical ly. 5. Findings were discussed with Dr. Cornelius at 11:54 a.m. on 09/21/2022. RADIATION DOSE DELIVERED: 685.79mGy.cm Total DLP DATA REPOSITORY: All CT scans at this facility are submitted to the National Radiology Data Registry (NRDR) Dose Index Registry (DIR) with the [employer] ([employer]). RADIATION OPTIMIZATION: All CT scans at this facility use at least one of these dose optimization te chniques: automated exposure control; mA and/or kV adjustment per patient size (includes targeted exa ms where dose is matched to clinical indication); or iterative reconstruction.
[2022-09-21 11:34] LABS: Bilirubin Negative (Negative); Blood Negative (Negative); Clarity Clear (Clear); Glucose Negative (Negative); Ketones Negative (Negative); Leukocyte Esterase Negative (Negative); Nitrite Negative (Negative); Specific Gravity 1.015 (1.005-1.025); Urobilinogen 0.2 EU/dL (Up TO 0.2)
[2022-09-21] MEDS: Ketorolac 30 MG/ML VIAL IM (11:58)
== END 2022-09-21 12:21 | disposition home or self-care (01) ==
PROVIDERS: Emergency Provider Emergency Medicine; PCP Internal Medicine
DX: R10.9 Unspecified abdominal pain (principal); N10 Acute pyelonephritis
CPT/HCPCS: 99284; 74176; 81003; 99283; J1885

== ENCOUNTER 2023-03-03 12:47 | Emergency (ER) | payer BC, SELFPAY ==
--- NOTE | 2023-03-03 12:45 | RT.EKG_ITS ---
APPROVED REPORT Exam: Resting ECG Reason for Exam: weakness/passout/fall Patient Location: E HR:62 bpm ECG Measurements Heart Rate 62 AXIS MI 162 P 39 QRSd 93 QRS 55 QT 423 T 42 QTc 429 Conclusion Sinus rhythm...normal P axis, V-rate 60- 99. Sinus. Normal axis. Normal intervals. No STEMI. I have reviewed and interpreted ECG and agree with software generated interpretation.
[2023-03-03 12:53] VITALS: BP 120/100; PULSE 65; RESP 18; TEMP 36.8; O2SAT 99
--- NOTE | 2023-03-03 13:06 | W.ED.GENAD ---
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 anterior-posterior compression Skin General skin exam: no rashes or lesions noted Neuro General: patient alert, patient awake, patient oriented x3, moves all extremities and no meningeal signs Cranial Nerves: CN's II-XI intact bilaterally Cognition: normal cognition Speech: speech normal Motor: muscle tone normal throughout and strength 5/5 throughout Sensory Exam: no sensory deficits noted Extrem General: normal to inspection, full ROM, capillary refill normal, no calf tenderness bilaterally and no edema Elbow/forearm/wrist images: 1. 1 x 1 cm superficial abrasion to the left lateral epicondyle. 2. 1 x 1 cm superficial abrasion overlying the olecranon. Knee images: 1. There 1 x 1 cm superficial noted to the right anterior knee. Other: Full range of motion of the bilateral upper and lower extremities without significant pain with range of motion or deformity. Psych Appearance: grossly normal Mental Status: mental status grossly normal Speech and Movement: speech and movement normal Affect: normal affect Course Vital Signs Vital signs: Vital Signs Temperature 98.2 F 03/03/23 12:53 Pulse 65 03/03/23 12:53 Respiratory Rate 18 03/03/23 12:53 Blood Pressure 120/100 H 03/03/23 12:53 Pulse Oximetry 99 03/03/23 12:53 Temperature 98.2 F 03/03/23 12:53 Temperature Source Skin 03/03/23 12:53 Pulse 65 03/03/23 12:53 Respiratory Rate 18 03/03/23 12:53 Respiratory Effort Normal 03/03/23 12:56 Blood Pressure 120/100 H 05/21/23 12:53 Blood Pressure Position Sitting 03/03/23 12:53 Pulse Oximetry 99 03/03/23 12:53 Pain Level 10 03/03/23 12:53
[2023-03-03 13:18] VITALS: BP 168/82; PULSE 68; RESP 18; O2SAT 99
--- NOTE | 2023-03-03 13:30 | DI.CT_ITS ---
Exam(s) CT HEAD CERVICAL SPINE WO EXAM: CT HEAD CERVICAL SPINE WO CLINICAL HISTORY: possible head injury s/p syncope. TECHNIQUE: Imaging Protocol: Axial computed tomography images with coronal and sagittal reformatted images were created and reviewed COMPARISON: CT CT HEAD CERVICAL SPINE WO from 09/16/2021 FINDINGS: CT Head: Ventricles and Extra axial spaces: Normal in size and morphology for the patient's age. Hemorrhage: None. Cerebral parenchyma: Normal. Midline shift: None. Brainstem/Cerebellum: Normal. Calvarium: Normal. Visualized Paranasal sinuses/Mastoids: Clear. Soft Tissues: Unremarkable. CT Cervical Spine: Bones: No acute fracture or subluxation. Appropriate degenerative changes are present. There is reve rsal of the normal cervical lordosis centered at C4. Soft Tissues: Unremarkable. Lung Apices: Clear. IMPRESSION: 1. No acute intracranial process. 2. No acute fracture or subluxation in the cervical spine. 3. There is reversal of the normal cervical lordosis centered at C4. This may be due to muscle spasm or patient positioning. RADIATION DOSE DELIVERED: 1,212.96mGy.cm Total DLP DATA REPOSITORY: All CT scans at this facility are submitted to the National Radiology Data Registry (NRDR) Dose Index Registry (DIR) with the [employer] ([employer]). RADIATION OPTIMIZATION: All CT scans at this facility use at least one of these dose optimization te chniques: automated exposure control; mA and/or kV adjustment per patient size (includes targeted exa ms where dose is matched to clinical indication); or iterative reconstruction.
[2023-03-03 13:33] LABS: Abs Immature Grans 0.03 10^3/uL (0.0-0.06); Absolute Basophil Count 0.07 10^3/uL (0.0-0.2); Absolute Eosinophil Count 0.13 10^3/uL (0.0-0.7); Absolute Monocyte Count 0.82 10^3/uL (0.1-0.8); Absolute Neutrophil Count 5.13 10^3/uL (1.2-6.7); Basophils % 0.8; Eosinophils % 1.5; HCT 41.9 % (36.0-46.0); HGB 14.2 g/dL (11.2-15.7); Immature Grans % 0.4; Lymphocytes % 27.1; MCH 32.2 pg (27.0-33.0); MCHC 33.9 % (32.0-36.0); MCV 95 fL (80-95); MPV 9.2 fL (8.0-11.0); Monocytes % 9.7; Neutrophils % 60.5; Platelet Count 328 10^3/uL (130-400); RBC 4.41 10^6/uL (3.93-5.22); RDW 11.9 % (11.7-14.6); RDW-SD 41.7 fL; WBC 8.48 10^3/uL (4.4-10.8)
--- NOTE | 2023-03-03 13:44 | DI.CT_ITS ---
Exam(s) CT CHEST PE ABD PELVIS W CT THORACIC LUMBAR SPINE REC EXAM: CT CHEST PE ABD PELVIS W and CT thoracic and lumbar spine recons CLINICAL HISTORY: syncope and fall, L rib pain, diffuse abd pain. TECHNIQUE: Imaging Protocol: Axial CT angiography was performed with multi-slice acquisition and mu lti-planar and/or 3D reconstructions. CONTRAST MATERIAL: Intravenous: Omnipaque 350contrast volume:100 mL COMPARISON: CT CT RENAL COLIC WO from 09/21/[address] THORACIC LUMBAR SPINE REC from 03/03/2023 FINDINGS: CHEST: Tracheobronchial tree: Patent where visualized. Pulmonary parenchyma: There is dependent atelectasis in the lung bases. No architectural distortion. Pulmonary Arteries: No evidence of filling defect to suggest pulmonary emboli. Mediastinum and Zeinab: No dominant adenopathy or fluid collection. The esophagus is unremarkable. Visualized thyroid gland: Unremarkable. Pleura: No effusion or pneumothorax. Heart: The heart is not dilated. There is mild coronary artery calcification. No pericardial effusio n. Aorta: Thoracic aorta non-dilated. No evidence of dissection. Mild atherosclerosis. Bones: Within normal limits for the patient's age. Soft tissues: Unremarkable. Thoracic spine CT recons: Age-appropriate degenerative changes are present. No acute fractures or wing bluxations are present. ABDOMEN: Liver: Normal density. No measurable mass. Portal, Superior Mesenteric, and Splenic Veins: Unremarkable. Gallbladder and Biliary Tract: Status post cholecystectomy. No biliary ductal dilatation. Pancreas: Normal density, no abnormal calcifications or inflammatory process. Spleen: Normal. Adrenals: No masses seen. Kidneys: Normal size, contour and axis. No radiodense stones or obstructive uropathy. No masses seen. There is a duplicated left renal collecting system. Abdominal Aorta: Abdominal portion non-dilated. Atherosclerosis is present. Bowel: There is diverticulosis of the colon but no evidence of acute diverticulitis. There is no radha dence of bowel obstruction or bowel wall thickening. Appendix is unremarkable. Peritoneal Cavity: No ascites, collection or mesenteric inflammatory response. No free air. Lymph Nodes: Within normal limits. Bones: Within normal limits for the patient's age. Soft Tissues: Unremarkable. Lumbar spine CT recons: Age-appropriate degenerative changes are present. PELVIS: Bladder: Symmetric distention, no gross wall thickening. Reproductive Organs: Unremarkable as visualized. Lymph Nodes: Within normal limits. Bones: Within normal limits. IMPRESSION: 1. No evidence pulmonary embolism, thoracic aortic dissection or aneurysm. 2. No acute pulmonary process. 3. No acute abdominal or pelvic process. 4. No acute fracture or subluxation in the thoracic or lumbar spines. RADIATION DOSE DELIVERED: 1076.13 mGy.cm Total DLP DATA REPOSITORY: All CT scans at this facility are submitted to the National Radiology Data Registry (NRDR) Dose Index Registry (DIR) with the [employer] (ACR). RADIATION OPTIMIZATION: All CT scans at this facility use at least one of these dose optimization te chniques: automated exposure control; mA and/or kV adjustment per patient size (includes targeted exa ms where dose is matched to clinical indication); or iterative reconstruction.
[2023-03-03 13:45] VITALS: BP 140/63; PULSE 63; RESP 14; O2SAT 98
[2023-03-03 13:45] LABS: ALT 42 U/L (14-59); AST 28 U/L (15-37); Albumin 3.7 g/dL (3.4-5.0); Alkaline Phosphatase 67 U/L (46-116); Anion Gap 6.6 mmol/L (3-11); BUN 14 mg/dL (7-18); Bilirubin, Total 0.5 mg/dL (0.2-1.0); CO2 29.4 mmol/L (21.0-32.0); CREATININE 0.8 mg/dL (0.55-1.02); Calcium 9.3 mg/dL (8.5-10.1); Chloride 98 mmol/L (98-107); Estimated GFR 86.42 (mL/min/1.73m2); Glucose 105 mg/dL (74-106); Lipase 25 U/L (16-77); Magnesium 1.9 mg/dL (1.8-2.4); Potassium 4.3 mmol/L (3.5-5.1); Sodium 134 mmol/L (136-145); Total Protein 7.2 g/dL (6.4-8.2); Troponin I < 50 ng/L (<or=60)
[2023-03-03] MEDS: Normal Saline 1,000 ML 1000 ML IV (13:54)
[2023-03-03] MEDS: Omnipaque 350 MG/ML 100 ML BTL IJ (14:44)
[2023-03-03] MEDS: Normal Saline - Diluent 50 ML VIAL IJ (14:45)
[2023-03-03 15:00] VITALS: BP 137/60; PULSE 63; RESP 12; O2SAT 98
--- NOTE | 2023-03-03 15:08 | DI.VRAD_ITS ---
PROCEDURE INFORMATION: Exam: CTA Chest With Contrast Exam date and time: 03/03/2023 2:12 PM Age: 57 years old Clinical indication: Other: Syncope and fall, L rib pain, diffuse abd pain; Other: Brief rectal pain, R/O pe/ptx/abd acute findings TECHNIQUE: Imaging protocol: Computed tomographic angiography of the chest with contrast. Exam focused on the arteries. 3D rendering (Not supervised by radiologist): MIP and/or 3D reconstructed images were created by the technologist. Radiation optimization: All CT scans at this facility use at least one of these dose optimization techniques: automated exposure control; mA and/or kV adjustment per patient size (includes targeted exams where dose is matched to clinical indication); or iterative reconstruction. Contrast material: OMNI 350; Contrast volume: 100 ml; Contrast route: INTRAVENOUS (IV); COMPARISON: CT HEAD CERVICAL SPINE WO 03/03/2023 2:01 PM FINDINGS: Pulmonary arteries: No evidence of pulmonary embolus to the segmental level. Aorta: No aneurysm of the aorta. No dissection of the aorta. Lungs: Bibasilar atelectasis Pleural spaces: Unremarkable. No pneumothorax. No pleural effusion. Heart: Unremarkable. No cardiomegaly. No pericardial effusion. Lymph nodes: Unremarkable. No enlarged lymph nodes. Bones/joints: Unremarkable. No acute fracture. Soft tissues: Unremarkable. IMPRESSION: 1. No evidence of pulmonary embolus to the segmental level. 2. No aneurysm of the aorta. 3. No dissection of the aorta. PROCEDURE INFORMATION: Exam: CT Abdomen And Pelvis With Contrast Exam date and time: 03/03/2023 2:12 PM Age: 57 years old Clinical indication: Other: Syncope and fall, L rib pain, diffuse abd pain; Other: Brief rectal pain, R/O pe/ptx/abd acute findings TECHNIQUE: Imaging protocol: Computed tomography of the abdomen and pelvis with contrast. Radiation optimization: All CT scans at this facility use at least one of these dose optimization techniques: automated exposure control; mA and/or kV adjustment per patient size (includes targeted exams where dose is matched to clinical indication); or iterative reconstruction. Contrast material: OMNI 350; Contrast volume: 100 ml; Contrast route: INTRAVENOUS (IV); COMPARISON: CT RENAL COLIC WO 09/21/2022 11:32 AM FINDINGS: Liver: Normal. No mass. Gallbladder and bile ducts: Cholecystectomy Pancreas: Normal. No ductal dilation. Spleen: Normal. No splenomegaly. Adrenal glands: Normal. No mass. Kidneys and ureters: Duplicated left ureters. No ureteral calculus. No renal calculus Stomach and bowel: Unremarkable. No obstruction. No mucosal thickening. Appendix: Normal appendix Intraperitoneal space: Unremarkable. No free air. No significant fluid collection. Vasculature: Unremarkable. No abdominal aortic aneurysm. Lymph nodes: Small retroperitoneal nodes Urinary bladder: Unremarkable as visualized. Reproductive: Unremarkable as visualized. Bones/joints: Unremarkable. No acute fracture. Soft tissues: Unremarkable. IMPRESSION: No acute process Dictated and Authenticated by: Mauricio Griffin MD. Ordering:REGINO Jones MD
--- NOTE | 2023-03-03 15:18 | DI.VRAD_ITS ---
PROCEDURE INFORMATION: Exam: CT Head Without Contrast Exam date and time: 03/03/2023 2:01 PM Age: 57 years old Clinical indication: Other: Possible head injury S/P syncope TECHNIQUE: Imaging protocol: Computed tomography of the head without contrast. Radiation optimization: All CT scans at this facility use at least one of these dose optimization techniques: automated exposure control; mA and/or kV adjustment per patient size (includes targeted exams where dose is matched to clinical indication); or iterative reconstruction. COMPARISON: CT HEAD CERVICAL SPINE WO 09/16/2021 12:52 PM FINDINGS: Brain: Ventricles, sulci are within normal limits. There is no evidence of acute hemorrhage, mass or shift. There is no evidence of an acute cortical or major vascular territory infarct. No abnormal extra-axial collections are identified. Cerebral ventricles: No significant ventricular enlargement/hydrocephalus. Paranasal sinuses: No significant sinus opacification or fluid level Mastoid air cells: No significant mastoid opacification Bones/joints: There is no acute bony abnormality Soft tissues: Subcutaneous soft tissues are unremarkable IMPRESSION: No acute findings. PROCEDURE INFORMATION: Exam: CT Cervical Spine Without Contrast Exam date and time: 03/03/2023 2:01 PM Age: 57 years old Clinical indication: Other: Possible head injury S/P syncope TECHNIQUE: Imaging protocol: Computed tomography of the cervical spine without contrast. Radiation optimization: All CT scans at this facility use at least one of these dose optimization techniques: automated exposure control; mA and/or kV adjustment per patient size (includes targeted exams where dose is matched to clinical indication); or iterative reconstruction. COMPARISON: CT HEAD CERVICAL SPINE WO 09/16/2021 12:52 PM FINDINGS: Bones/joints: There is reversal of the cervical lordosis which may be positional or due to spasm. There is no evidence of an acute fracture in the cervical spine. There is no decrease of vertebral body height. There is no acute or destructive bony abnormality. There is multilevel disc space narrowing in the cervical spine. This is present at multiple levels but appears most prominent C3-C4 through C5-C6. There are disc osteophyte complexes, spondylitic changes of the endplates, uncovertebral and facet arthropathy. There is some ossification of the posterior longitudinal ligament which is discontinuous. These degenerative changes lead to narrowing of the canal/stenosis which appears most prominent/severe at C5-C6 followed by C4-C5. There is milder stenosis noted at C6-C7, C3-C4. Degenerative changes lead to foraminal stenosis which is present at multiple levels also appears most prominent at C5-C6, greater on the right than the left. Lungs: There is limited visualization of the lung apices. Small paraseptal bullae are noted. Minimal pleuroparenchymal scarring Soft tissues: There is no evidence of a discrete soft tissue mass in the neck. IMPRESSION: Reversal of the cervical lordosis. Cervical spondylosis, degenerative disc disease with multilevel spinal and foraminal stenosis. If further evaluation of the intervertebral discs, canal, cord, foramina is indicated MR correlation recommended. No acute fracture identified. Dictated and Authenticated by: Maddie Can MD. Ordering:REGINO Jones MD
--- NOTE | 2023-03-03 15:27 | DI.VRAD_ITS ---
PROCEDURE INFORMATION: Exam: CT Thoracic Spine Without Contrast Exam date and time: 03/03/2023 2:12 PM Age: 57 years old Clinical indication: Other: S/P fall, chronic back pain, R/O FX TECHNIQUE: Imaging protocol: Computed tomography of the thoracic spine without contrast. Radiation optimization: All CT scans at this facility use at least one of these dose optimization techniques: automated exposure control; mA and/or kV adjustment per patient size (includes targeted exams where dose is matched to clinical indication); or iterative reconstruction. COMPARISON: CT THORACIC LUMBAR SPINE WO 09/16/2021 12:57 PM FINDINGS: Bones/joints: There is no evidence of acute fracture.There is no evidence of malalignment or dislocation. Anterior osteophyte formation in the lower thoracic spine Soft tissues: Unremarkable. IMPRESSION: There is no evidence of acute fracture.There is no evidence of malalignment or dislocation. PROCEDURE INFORMATION: Exam: CT Lumbar Spine Without Contrast Exam date and time: 03/03/2023 2:12 PM Age: 57 years old Clinical indication: Other: S/P fall, chronic back pain, R/O FX TECHNIQUE: Imaging protocol: Computed tomography of the lumbar spine without contrast. Radiation optimization: All CT scans at this facility use at least one of these dose optimization techniques: automated exposure control; mA and/or kV adjustment per patient size (includes targeted exams where dose is matched to clinical indication); or iterative reconstruction. COMPARISON: CT THORACIC LUMBAR SPINE WO 09/16/2021 12:57 PM FINDINGS: Bones/joints: There is no evidence of acute fracture.There is no evidence of malalignment or dislocation. Broad-based disc bulge at L4/L5 and L5/S1 consistent with degenerative disc disease Soft tissues: Unremarkable. IMPRESSION: There is no evidence of acute fracture.There is no evidence of malalignment or dislocation. Dictated and Authenticated by: Mauricio Griffin MD. Ordering:REGINO Jones MD
[2023-03-03 15:30] VITALS: BP 116/60; PULSE 66; RESP 14; O2SAT 96
[2023-03-03] MEDS: oxyCODONE 5 MG TAB PO (15:37)
[2023-03-03] MEDS: Ketorolac 30 MG/ML VIAL IVP (15:37)
[2023-03-03 16:00] VITALS: BP 126/65; PULSE 59; RESP 16; O2SAT 98
== END 2023-03-03 16:40 | disposition home or self-care (01) ==
PROVIDERS: Emergency Provider Physician Assistant; PCP Internal Medicine
DX: R55 Syncope and collapse (principal); R42 Dizziness and giddiness; S50.312A Abrasion of left elbow, initial encounter; S60.512A Abrasion of left hand, initial encounter; S80.211A Abrasion, right knee, initial encounter; W18.30XA Fall on same level, unspecified, initial encounter
CPT/HCPCS: 71275; 74177; 80053; 83690; 90471; 93005; 96361; 96374; 99285; 70450; 72125; 83735; 84484; 85025; 93010; 99284; J1885; J3490

== ENCOUNTER 2023-04-23 14:50 | Outpatient (CLI) | payer BC, SELFPAY | END 2023-04-23 14:51 | disposition home or self-care (01) | LOC: CARDOPNVT 14:50 | PROVIDERS: PCP Internal Medicine; Visit Provider Internal Medicine | DX: R55 Syncope and collapse (principal) | CPT/HCPCS: 93246 ==

== ENCOUNTER 2023-05-27 07:56 | Outpatient (CLI) | payer BC, SELFPAY ==
--- NOTE | 2023-05-28 12:31 | W.CARDEVENT ---
Date of service: 05/28/23 Time of Service: 12:31 Cardiac Event Recorder Referring Provider:: Pastora Hoffman Indications:: Syncope Cardiac Event Note: This is a cardiac event monitor ordered for syncope. Patient was monitored for 13 days 2 hours and 48 minutes Rhythm throughout was sinus with an average heart rate of 75. Minimum was 54, maximum 113 There were no ventricular dysrhythmias. There were very rare isolated atrial premature beats There was no atrial fibrillation, no SVT, no high-grade AV block, no pauses greater than 3 seconds . Patient symptoms were reported which all corresponded to sinus rhythm
== END 2023-05-27 07:57 | disposition home or self-care (01) ==
LOC: CARDOPNVT 07:56
PROVIDERS: PCP Internal Medicine; Visit Provider Internal Medicine Cardiovascular Disease
DX: R55 Syncope and collapse (principal)

== ENCOUNTER 2023-09-02 04:13 | Outpatient (CLI) | payer BC, SELFPAY ==
[2023-09-02 11:47] LABS: TSH 0.21 uIU/mL (0.36-3.74)
== END 2023-09-02 04:14 | disposition home or self-care (01) ==
LOC: LBO 04:13
PROVIDERS: PCP Internal Medicine; Visit Provider Internal Medicine
DX: E03.9 Hypothyroidism, unspecified (principal)
CPT/HCPCS: 36415; 84443

== ENCOUNTER 2023-11-29 11:48 | Outpatient (CLI) | payer BC, SELFPAY ==
[2023-11-29 11:57] LABS: TSH 0.17 uIU/mL (0.36-3.74)
== END 2023-11-29 11:49 | disposition home or self-care (01) ==
LOC: LBO 11:49
PROVIDERS: PCP Internal Medicine; Visit Provider Internal Medicine
DX: E03.9 Hypothyroidism, unspecified (principal)
CPT/HCPCS: 36415; 84443

== ENCOUNTER 2023-12-04 13:25 | Outpatient (REF) | payer BC, SELFPAY ==
[2023-12-05 09:29] LABS: Lyme Ab w Rflx to Lyme Confirm Negative (Negative)
[2023-12-07 00:28] LABS: Anaplasma phagocytophilum Negative (Negative); B. miyamotoi PCR Negative (Negative); Babesia divergens/MO-1 Negative (Negative); Babesia duncani Negative (Negative); Babesia microti Negative (Negative); Ehrlichia chaffeensis Negative (Negative); Ehrlichia ewingii/canis Negative (Negative); Ehrlichia muris eauclairensis Negative (Negative)
== END 2023-12-04 13:26 | disposition home or self-care (01) ==
LOC: NCHCN 13:25
PROVIDERS: PCP Internal Medicine; Visit Provider Internal Medicine
DX: R53.83 Other fatigue (principal)
CPT/HCPCS: 87798; 86618

== ENCOUNTER 2023-12-26 16:59 | Outpatient (REF) | payer BC, SELFPAY ==
[2023-12-26 17:29] LABS: Calculated LDL 89 mg/dL (<100); Cholesterol 168 mg/dL (<200); HDL Cholesterol 69 mg/dL (40-60); Triglyceride 54 mg/dL (<150)
== END 2023-12-26 17:00 | disposition home or self-care (01) ==
LOC: LBN 16:59
PROVIDERS: PCP Internal Medicine
DX: E03.9 Hypothyroidism, unspecified (principal); R53.83 Other fatigue; N95.1 Menopausal and female climacteric states; Z79.890 Hormone replacement therapy
CPT/HCPCS: 80061

== ENCOUNTER 2024-02-03 15:11 | Outpatient (REF) | payer BC, SELFPAY ==
[2024-02-03 14:48] LABS: HCT 44.5 % (36.0-46.0); HGB 14.8 g/dL (11.2-15.7); MCH 32.4 pg (27.0-33.0); MCHC 33.3 % (32.0-36.0); MCV 97 fL (80-95); MPV 9.7 fL (8.0-11.0); Platelet Count 333 10^3/uL (130-400); RBC 4.57 10^6/uL (3.93-5.22); RDW 12.4 % (11.7-14.6); RDW-SD 44.3 fL; WBC 6.34 10^3/uL (4.4-10.8)
[2024-02-03 15:05] LABS: Hemoglobin A1C 5.6 % (<5.7)
[2024-02-03 15:25] LABS: ALT 43 U/L (14-59); AST 28 U/L (15-37); Albumin 3.5 g/dL (3.4-5.0); Alkaline Phosphatase 78 U/L (46-116); Anion Gap 8.2 mmol/L (3-11); BUN 9 mg/dL (7-18); Bilirubin, Total 0.3 mg/dL (0.2-1.0); CO2 28.8 mmol/L (21.0-32.0); CREATININE 0.7 mg/dL (0.55-1.02); Calcium 9.3 mg/dL (8.5-10.1); Calculated LDL 104 mg/dL (<100); Chloride 103 mmol/L (98-107); Cholesterol 186 mg/dL (<200); Estimated GFR 100.81 (mL/min/1.73m2); Glucose 107 mg/dL (74-106); HDL Cholesterol 68 mg/dL (40-60); Potassium 4.3 mmol/L (3.5-5.1); Sodium 140 mmol/L (136-145); TSH 0.79 uIU/Ml (0.36-3.74); Total Protein 7.1 g/dL (6.4-8.2); Triglyceride 72 mg/dL (<150)
== END 2024-02-03 15:12 | disposition home or self-care (01) ==
LOC: NCHCN 15:11
PROVIDERS: PCP Internal Medicine; Visit Provider Internal Medicine
DX: E03.9 Hypothyroidism, unspecified (principal); I10 Essential (primary) hypertension
CPT/HCPCS: 80053; 80061; 85027; 83036; 84443

== ENCOUNTER 2024-10-02 16:51 | Outpatient (REF) | payer MEDICARE, SELFPAY ==
[2024-10-02 16:19] LABS: Hemoglobin A1C 5.3 % (<5.7)
[2024-10-02 16:28] LABS: BUN 8 mg/dL (7-18); CREATININE 0.8 mg/dL (0.55-1.02); Calcium 9.9 mg/dL (8.5-10.1); Chloride 97 mmol/L (98-107); Estimated GFR 85.89 (mL/min/1.73m2); Glucose 93 mg/dL (74-106); Potassium 4.6 mmol/L (3.5-5.1); Sodium 134 mmol/L (136-145); TSH 1.17 uIU/mL (0.36-3.74)
== END 2024-10-02 16:52 | disposition home or self-care (01) ==
LOC: NCHCN 16:51
PROVIDERS: PCP Internal Medicine; Visit Provider Internal Medicine
DX: I10 Essential (primary) hypertension (principal); R73.03 Prediabetes; E03.9 Hypothyroidism, unspecified
CPT/HCPCS: 80048; 83036; 84443